=== PATIENT | female | born 1960 | race Caucasian/White ===

== ENCOUNTER → 2016-09-04 | Outpatient (CLI) | payer OTHER ==
[2015-05-15 10:50] VITALS: BP 96/61
== END ==
LOC: RT 10:26
PROVIDERS: ATTEND Obstetrics & Gynecology Obstetrics
DX: G56.01 Carpal tunnel syndrome, right upper limb (principal)
CPT/HCPCS: 95909

== ENCOUNTER → 2017-03-20 | Outpatient (CLI) | payer OTHER ==
[2015-05-15 10:50] VITALS: BP 96/61
[2017-03-20 13:17] LABS: BASOPHILS % (AUTO) 0.9 % (0.2-1.0); EOSINOPHILS # (AUTO) 0.2 x10^3/uL (0.0-0.2); EOSINOPHILS % (AUTO) 4.2 % (0.9-2.9); HEMATOCRIT 39.5 % (36.0-47.0); HEMOGLOBIN 13.2 g/dL (12.0-16.0); LYMPHOCYTES # (AUTO) 1.5 X10^3/uL (1.3-2.9); LYMPHOCYTES % (AUTO) 30.4 % (21.0-51.0); MEAN CORPUSCULAR HEMOGLOBIN 29.4 pg (27.0-34.0); MEAN CORPUSCULAR HGB CONC 33.5 g/dL (33.0-35.0); MEAN CORPUSCULAR VOLUME 87.6 fL (80.0-100.0); MONOCYTES # (AUTO) 0.5 x10^3/uL (0.3-0.8); MONOCYTES % (AUTO) 9.7 % (0.0-13.0); NEUTROPHILS # (AUTO) 2.7 x10^3/uL (2.2-4.8); NEUTROPHILS % (AUTO) 54.8 % (42.0-75.0); PLATELET COUNT 218 X10^3/uL (150.0-450.0); RED BLOOD COUNT 4.51 X10^6/uL (3.5-5.4); RED CELL DISTRIBUTION WIDTH 13.5 % (11.6-16.5); WHITE BLOOD COUNT 4.9 X10^3/uL (3.6-10.0)
[2017-03-20 13:20] LABS: BLOOD UREA NITROGEN 12 mg/dL (7-18); CALCIUM 9.1 mg/dL (8.5-10.1); CARBON DIOXIDE 30.5 mmol/L (21-32); CHLORIDE 106 mmol/L (98-107); CREATININE 0.75 mg/dL (0.55-1.02); SODIUM 141 mmol/L (136-145); eGFR BLACK RACES > 60 (>60); eGFR NON BLACK RACES > 60 (>60)
--- NOTE | 2017-03-20 14:26 | RAD ---
HISTORY: Preop carpal tunnel syndrome Study: Chest PA and lateral Comparison: 05/15/2015 Findings: The heart is within normal limits in size. The earnest are normal. The lungs are well inflated and free of acute alveolar infiltrates. No pleural effusions are identified. The bony thorax is unremarkable. IMPRESSION: No acute cardiopulmonary disease Reported By:
== END ==
LOC: LAB 12:57
PROVIDERS: ATTEND Orthopaedic Surgery Hand Surgery
DX: Z01.818 Encounter for other preprocedural examination (principal); Z01.810 Encounter for preprocedural cardiovascular examination; Z01.811 Encounter for preprocedural respiratory examination; G56.01 Carpal tunnel syndrome, right upper limb
CPT/HCPCS: 36415; 71046; 80048; 85025; 85610; 85730; 93005; 93010

== ENCOUNTER 2017-05-17 08:14 | Day surgery (SDC) | payer OTHER ==
[2017-05-17] MEDS ORDERED: D5 LR 1000 ML 1,000 ML IV ONE (08:21)
[2017-05-17] MEDS ORDERED: DIPRIVAN VIAL 20 ML ONE (09:58)
[2017-05-17] MEDS ORDERED: DIPRIVAN VIAL 10 ML ONE (10:19)
[2017-05-17 11:16] VITALS: BP 111/69
== END 2017-05-17 11:00 | disposition home or self-care (01) ==
LOC: SURG1 08:14
PROVIDERS: ATTEND Internal Medicine Gastroenterology
PROC: 0DBN8ZX Excision of Sigmoid Colon, Via Natural or Artificial Opening Endoscopic, Diagnostic (ICD-10-PCS; principal; 2017-05-17 09:30)
PROC: 0DBP8ZX Excision of Rectum, Via Natural or Artificial Opening Endoscopic, Diagnostic (ICD-10-PCS; principal; 2017-05-17 09:30)
PROC: 0DJD8ZZ Inspection of Lower Intestinal Tract, Via Natural or Artificial Opening Endoscopic (ICD-10-PCS; principal; 2017-05-17 09:30)
DX: Z12.11 Encounter for screening for malignant neoplasm of colon (principal); K92.1 Melena; K51.80 Other ulcerative colitis without complications; R10.31 Right lower quadrant pain; R10.32 Left lower quadrant pain; R19.7 Diarrhea, unspecified; K64.0 First degree hemorrhoids; K62.89 Other specified diseases of anus and rectum; K52.89 Other specified noninfective gastroenteritis and colitis
CPT/HCPCS: A4217; J3490; J7120

== ENCOUNTER → 2017-05-22 | Outpatient (CLI) | payer OTHER ==
[2017-05-17 11:16] VITALS: BP 111/69
== END ==
LOC: LAB 14:35
PROVIDERS: ATTEND Internal Medicine Gastroenterology
DX: R19.7 Diarrhea, unspecified (principal)
CPT/HCPCS: 87045; 87427; 87449; 87493

== ENCOUNTER → 2017-06-05 | Outpatient (CLI) | payer OTHER ==
[2017-05-17 11:16] VITALS: BP 111/69
[2017-06-05 13:57] LABS: BASOPHILS # (AUTO) 0.1 X10^3/uL (0.0-0.1); BASOPHILS % (AUTO) 0.7 % (0.2-1.0); EOSINOPHILS # (AUTO) 0.2 x10^3/uL (0.0-0.2); EOSINOPHILS % (AUTO) 3.1 % (0.9-2.9); HEMATOCRIT 38.8 % (36.0-47.0); HEMOGLOBIN 13.2 g/dL (12.0-16.0); LYMPHOCYTES # (AUTO) 1.5 X10^3/uL (1.3-2.9); LYMPHOCYTES % (AUTO) 21.9 % (21.0-51.0); MEAN CORPUSCULAR HEMOGLOBIN 29.3 pg (27.0-34.0); MEAN CORPUSCULAR VOLUME 86.3 fL (80.0-100.0); MONOCYTES # (AUTO) 0.5 x10^3/uL (0.3-0.8); MONOCYTES % (AUTO) 6.4 % (0.0-13.0); NEUTROPHILS # (AUTO) 4.8 x10^3/uL (2.2-4.8); NEUTROPHILS % (AUTO) 67.9 % (42.0-75.0); PLATELET COUNT 242 X10^3/uL (150.0-450.0); RED BLOOD COUNT 4.49 X10^6/uL (3.5-5.4); RED CELL DISTRIBUTION WIDTH 14.2 % (11.6-16.5); WHITE BLOOD COUNT 7.1 X10^3/uL (3.6-10.0)
[2017-06-05 14:18] LABS: ALANINE AMINOTRANSFERASE 61 Units/L (12-78); ALBUMIN 4.1 g/dL (3.4-5.0); ALKALINE PHOSPHATASE 146 Units/L (46-116); ASPARTATE AMINO TRANSFERASE 48 Units/L (15-37); BLOOD UREA NITROGEN 14 mg/dL (7-18); CALCIUM 9.5 mg/dL (8.5-10.1); CHLORIDE 105 mmol/L (98-107); CREATININE 0.76 mg/dL (0.55-1.02); SODIUM 143 mmol/L (136-145); eGFR BLACK RACES > 60 (>60); eGFR NON BLACK RACES > 60 (>60)
[2017-06-05 14:44] LABS: ERYTHROCYTE SEDIMENTATION RATE 19 MM/HOUR (0-20)
== END ==
LOC: LAB 12:52
PROVIDERS: ATTEND Internal Medicine Gastroenterology
DX: K51.80 Other ulcerative colitis without complications (principal)
CPT/HCPCS: 36415; 80053; 83516; 85025; 85652; 86021; 86140; 86671

== ENCOUNTER 2023-08-08 12:31 | Observation (INO) ==
[2023-08-08 12:42] VITALS: BMI 20.9
--- NOTE | 2023-08-08 13:00 | DR.EXTPAIN ---
HPI Time seen Time Seen by Provider: 08/08/23 12:59 PCP Primary Care Physician: Dr. Caban Complaint/Symptoms Chief Complaint Doctor Comments: 62-year-old female presents for evaluation. Started feeling ill 5 days ago. Developed generalized body aches initially. [place] like the flu. Woke up that evening with nausea and frequent vomiting. Vomiting persisted over the next 1 to 2 days. Having generalized weakness, still with body aches, having a headache. Started coughing over the last day, moist, not very productive. Denies any diarrhea or urinary issues. No fever, chills, congestion, sore throat. Chief Complaint:: Pt states she has been sick since Sunday, vomitting, muscle pain, headache/sinus, stomach ache, running fever off and on, but her main concern is that she is so groggy she just can't seem to wake up and stay awake. COVID-19 Coronavirus risk:travel/contact w/high risk person: No Has patient experienced Coronavirus symptoms: Yes Coronavirus symptoms experienced: Fever Nurses notes reviewed Nurses Notes Review: Yes Source History Provided: Patient Mode of arrival Mode of Arrival: Ambulatory Timing Onset of Chief Complaint: 08/03/23 PMH PMH Past Medical History: Yes Past Medical History: Anxiety Past Surgical History: Yes Surgical History: Ortho Surgery Family History History of Family Medical Conditions: Yes Family Medical History: Cancer and Coronary Artery Disease Social History Does patient currently use any type of tobacco product: No Have you used tobacco products in the last 12 months: No Type of Tobacco Use: None Does any household member use tobacco: No Alcohol Use: None Do you use any recreational Drugs:: No Lives With: Spouse Lives Where: Home Travel Risk Coronavirus risk:travel/contact w/high risk person: No Has patient experienced Coronavirus symptoms: Yes Coronavirus symptoms experienced: Fever Infectious screening In the last 2 months have you had wt loss of >10#?: NO Have you had fever, night sweats or hemotysis?: No Have you traveled outside the country in the last 6 months?: No Isolation: Standard ROS Review of Systems Constitutional: Malaise and Weakness Eyes: No Symptoms Reported ENTM: No Symptoms Reported Respiratoy: Moist Cough Cardiovascular: No Symptoms Reported Gastrointestinal/Abdominal: Nausea and Vomiting Genitourinary: No Symptoms Reported Neurological: Headache and Weakness Musculoskeletal: Muscle Pain Integumentary: No Symptoms Reported Hematologic/Lymphatic: No Symptoms Reported All Other Systems: Reviewed and Negative PE Vital Signs Vitals: Vital Signs Temperature 98.3 F Pulse Rate 75 Pulse Rate 77 Pulse Rate 75 Pulse Rate 75 Pulse Rate 79 Pulse Rate 81 Pulse Rate 84 Respiratory Rate 26 Respiratory Rate 21 Respiratory Rate 35 Respiratory Rate 38 Respiratory Rate 25 Respiratory Rate 36 Respiratory Rate 20 Blood Pressure 98/55 Blood Pressure 107/59 Blood Pressure 99/55 O2 Sat by Pulse Oximetry 97 O2 Sat by Pulse Oximetry 96 O2 Sat by Pulse Oximetry 95 O2 Sat by Pulse Oximetry 94 O2 Sat by Pulse Oximetry 96 O2 Sat by Pulse Oximetry 97 O2 Sat by Pulse Oximetry 93 General General Appearance: Alert and In No Apparent Distress Eyes Eye exam: PERRL and EOMI ENT ENT Exam: Normal Oropharynx and Mucous Membranes Moist Neck Neck Exam: Normal Inspection and Full ROM; negative Tenderness Respiratory Respiratory Exam: Normal Lung Sounds Bilat; negative Accessory Muscle Use or R espiratory Distress Cardiovascular Cardiovascular Exam: Regular Rate, Normal Rhythm and Normal Heart Sounds Abdominal Exam Abdominal Exam: Normal Bowel Sounds and Soft; negative Tenderness Extremities Extremities Exam: Normal Inspection; negative Edema Back Back Exam: Normal Inspection and Tenderness (Diffuse muscle tenderness) Neurological Neurological Exam: Alert, Oriented X3 and CN II-XII Intact; negative Motor Sensory Deficit Skin Skin Exam: Warm and Dry COURSE Treatment Treatment: 60-year-old female, ill with past 5 days. [place] like the flu. Then developed profuse nausea/vomiting. Now with coughing, generalized weakness. Workup initiated. [id number] -workup shows chest x-ray to have marked consolidation of the lower portion of the right upper lobe, consistent with developing lobar pneumonia. White count is normal, chemistry is acceptable overall. She does have a bump of her AST, ALT and alkaline phosphatase. Discussed outpatient treatment versus observation admission. Patient referred to us today. Discussed with her attending, Dr. Caban, accepts admission. Will treat patient with Avelox 400 mg IV daily. ROR Labs Reviewed Laboratory Results Reviewed?: Yes 08/08/23 13:30 08/08/23 13:30 Laboratory: WBC 8.5 X10^3/uL (3.6-10.0) 08/08/23 13:30 RBC 3.94 X10^6/uL (3.5-5.4) 08/08/23 13:30 Hgb 11.4 g/dL (12.0-16.0) L 08/08/23 13:30 Hct 34.4 % (36.0-47.0) L 08/08/23 13:30 MCV 87.1 fL (80.0-100.0) 08/08/23 13:30 MCH 28.9 pg (27.0-34.0) 08/08/23 13:30 MCHC 33.2 g/dL (33.0-35.0) 08/08/23 13:30 RDW 14.2 % (11.6-16.5) 08/08/23 13:30 Plt Count 251 X10^3/uL (150.0-450.0) 08/08/23 13:30 MPV 10.2 fL (7.4-11.0) 08/08/23 13:30 Neut % (Auto) 73.5 % (42.0-75.0) 08/08/23 13:30 Lymph % (Auto) 10.4 % (21.0-51.0) L 08/08/23 13:30 [place] % (Auto) 15.5 % (0.0-13.0) H 08/08/23 13:30 Eos % (Auto) 0.4 % (0.9-2.9) L 08/08/23 13:30 Baso % (Auto) 0.2 % (0.2-1.0) 08/08/23 13:30 Neut # (Auto) 6.3 x10^3/uL (2.2-4.8) H 08/08/23 13:30 Lymph # (Auto) 0.9 X10^3/uL (1.3-2.9) L 08/08/23 13:30 [place] # (Auto) 1.3 x10^3/uL (0.3-0.8) H 08/08/23 13:30 Eos # (Auto) 0.0 x10^3/uL (0.0-0.2) 08/08/23 13:30 Baso # (Auto) 0.0 X10^3/uL (0.0-0.1) 08/08/23 13:30 Absolute Nucleated RBC 0.0 /100WBC 08/08/23 13:30 Sodium 140 mmol/L (136-145) 08/08/23 13:30 Corrected Sodium 140 mmol/L (136-145) 08/08/23 13:30 Potassium 3.4 mmol/L (3.5-5.1) L 08/08/23 13:30 Chloride 100 mmol/L (98-107) 08/08/23 13:30 Carbon Dioxide 31.6 mmol/L (21-32) 08/08/23 13:30 BUN 7 mg/dL (7-18) 08/08/23 13:30 Creatinine 0.73 mg/dL (0.55-1.02) 08/08/23 13:30 Est GFR (MDRD) Af Amer > 60 (>60) 08/08/23 13:30 Est GFR (MDRD) Non-Af > 60 (>60) 08/08/23 13:30 Glucose 117 mg/dL (65-99) H 08/08/23 13:30 Lactic Acid 1.4 mmol/L (0.4-2.0) 08/08/23 13:30 Calcium 9.3 mg/dL (8.5-10.1) 08/08/23 13:30 Corrected Calcium 10.6 mg/dL (8.5-10.1) H 08/08/23 13:30 Total Bilirubin 1.30 mg/dL (0.2-1.0) H 08/08/23 13:30 AST 127 Units/L (15-37) H 08/08/23 13:30 ALT 122 Units/L (12-78) H 08/08/23 13:30 Alkaline Phosphatase 285 Units/L (46-116) H 08/08/23 13:30 Creatine Kinase 35 Units/L (26-192) 08/08/23 13:30 Total Protein 7.0 g/dL (6.4-8.2) 08/08/23 13:30 Albumin 2.4 g/dL (3.4-5.0) L 08/08/23 13:30 Globulin 4.6 g/dL (2.5-4.5) H 08/08/23 13:30 Albumin/Globulin Ratio 0.5 Ratio (1.1-2.1) L 08/08/23 13:30 Lipase 26 Units/L (16-77) 08/08/23 13:30 SARS-CoV-2 (PCR) Negative (NEGATIVE) 08/08/23 13:16 Influenza Type A (PCR) Negative (NEGATIVE) 08/08/23 13:16 Influenza Type B (PCR) Negative (NEGATIVE) 08/08/23 13:16 RSV (PCR) Negative (NEGATIVE) 08/08/23 13:16 Labs acceptable XRAY XRAY Interpreted by: Both X-ray Results: EXAM: CHEST, 1 VIEW HISTORY: COUGH, BODY ACHES; COMPARISON: 05/28/2023 FINDINGS: The trachea is midline. The cardiac silhouette is unremarkable. Airspace opacity in the right upper lobe consistent with developing lobar pneumonia. Left hemithorax appears clear. The bony thorax is unremarkable. IMPRESSION: Parietal lobe pneumonia. THIS IS AN ELECTRONICALLY VERIFIED FINAL REPORT 08/08/2023 1:47 PM - Electronically signed by Balaji Valencia MD Opioid Opioid Risk Tool Age (Derrek box if 16-45): No History of Preadolescent Sexual Abuse: No Total: 0 Total Score Risk Category: Low Risk Copyright: Alcides HOPSON predicting aberrant behaviors Discharge Plan Diagnosis Discharge Problem: Pneumonia involving right lung Discharge Plan Patient Disposition: ADMITTED INPATIENT Condition: Stable Orders to Discharge Patient Discharge Orders: Transfer (Routine); Ordered 08/08/23 Ordered By: Ryland Mojica
[2023-08-08] MEDS: NS 1,000 ML IV 1,000 ML IV ONE (13:26)
[2023-08-08] MEDS: ZOFRAN INJ 4 MG VIAL IVP ONE (13:26)
[2023-08-08] MEDS: PROTONIX INJ 40 MG VIAL IVP ONE (13:27)
[2023-08-08 13:40] LABS: BASOPHILS % (AUTO) 0.2 % (0.2-1.0); EOSINOPHILS % (AUTO) 0.4 % (0.9-2.9); HEMATOCRIT 34.4 % (36.0-47.0); HEMOGLOBIN 11.4 g/dL (12.0-16.0); LYMPHOCYTES # (AUTO) 0.9 X10^3/uL (1.3-2.9); LYMPHOCYTES % (AUTO) 10.4 % (21.0-51.0); MEAN CORPUSCULAR HEMOGLOBIN 28.9 pg (27.0-34.0); MEAN CORPUSCULAR HGB CONC 33.2 g/dL (33.0-35.0); MEAN CORPUSCULAR VOLUME 87.1 fL (80.0-100.0); MEAN PLATELET VOLUME 10.2 fL (7.4-11.0); MONOCYTES # (AUTO) 1.3 x10^3/uL (0.3-0.8); MONOCYTES % (AUTO) 15.5 % (0.0-13.0); NEUTROPHILS # (AUTO) 6.3 x10^3/uL (2.2-4.8); NEUTROPHILS % (AUTO) 73.5 % (42.0-75.0); PLATELET COUNT 251 X10^3/uL (150.0-450.0); RED BLOOD COUNT 3.94 X10^6/uL (3.5-5.4); RED CELL DISTRIBUTION WIDTH 14.2 % (11.6-16.5); WHITE BLOOD COUNT 8.5 X10^3/uL (3.6-10.0)
--- NOTE | 2023-08-08 13:51 | RAD ---
EXAM:CHEST, 1 VIEWHISTORY:COUGH, BODY ACHES;COMPARISON:05/28/2023FINDINGS:The trachea is midline. The cardiac silhouette is unremarkable. Airspace opacity in the right upper lobe consistent with developing lobar pneumonia. Left hemithorax appears clear. The bony thorax is unremarkable.IMPRESSION:Parietal lobe pneumonia.THIS IS AN ELECTRONICALLY VERIFIED FINAL REPORT08/08/2023 1:47 PM - Electronically signed by Balaji Valencia MD
[2023-08-08 13:57] LABS: ALANINE AMINOTRANSFERASE 122 Units/L (12-78); ALBUMIN 2.4 g/dL (3.4-5.0); ALKALINE PHOSPHATASE 285 Units/L (46-116); ASPARTATE AMINO TRANSFERASE 127 Units/L (15-37); BLOOD UREA NITROGEN 7 mg/dL (7-18); CALCIUM 9.3 mg/dL (8.5-10.1); CARBON DIOXIDE 31.6 mmol/L (21-32); CHLORIDE 100 mmol/L (98-107); COR CA(FOR HYPOALB) 10.6 mg/dL (8.5-10.1); COR NA(FOR HYPERGLY) 140 mmol/L (136-145); CREATINE KINASE 35 Units/L (26-192); CREATININE 0.73 mg/dL (0.55-1.02); GLUCOSE 117 mg/dL (65-99); LIPASE 26 Units/L (16-77); POTASSIUM 3.4 mmol/L (3.5-5.1); SODIUM 140 mmol/L (136-145); eGFR NON BLACK RACES > 60 (>60)
[2023-08-08] MEDS: ROCEPHIN VIAL 1 GRAM IVP ONE (14:22)
[2023-08-08 15:47] LABS: BILIRUBIN,URINE NEGATIVE (NEGATIVE); BLOOD/HEMOGLOBIN,URINE NEGATIVE (NEGATIVE); GLUCOSE, URINE NEGATIVE (NEGATIVE); KETONES,URINE NEGATIVE (NEGATIVE); LEUKOCYTE ESTERASE ,URINE 1+ (NEGATIVE); NITRITES,URINE NEGATIVE (NEGATIVE); PROTEIN,URINE 1+ (NEGATIVE); UROBILINOGEN,URINE 2+ (NORMAL)
[2023-08-08 15:56] LABS: APPEARANCE,URINE CLEAR (CLEAR); BACTERIA,URINE TRACE /HPF (NEGATIVE); COLOR,URINE YELLOW (YELLOW); RBC,URINE NONE SEEN /HPF (0-3); SQUAMOUS EPITHELIAL CELL,UR RARE /HPF (NEGATIVE)
[2023-08-08] MEDS: AVELOX IV 400 MG/250 ML BAG 400 MG/250 ML PIGGYBACK IV SCH (16:26)
[2023-08-08] MEDS: LR 1,000 ML IV 1,000 ML IV SCH (16:28)
[2023-08-08] MEDS: K-DUR TAB 20 MEQ PO ONE (16:43)
[2023-08-08] MEDS: DUONEB 0.5 MG/3 MG (3 mL) NEB SCH (17:04)
[2023-08-08] MEDS: CONSULT PHARMACY - POTASSIUM & MAGNESIUM XX SCH ×2 (19:19)
[2023-08-08] MEDS: PULMICORT NEB TX 0.5 MG NEB SCH (20:18)
[2023-08-09] MEDS: TYLENOL 325 MG TAB PO PRN (02:43)
[2023-08-09 06:22] LABS: BASOPHILS % (AUTO) 0.2 % (0.2-1.0); EOSINOPHILS # (AUTO) 0.1 x10^3/uL (0.0-0.2); EOSINOPHILS % (AUTO) 0.6 % (0.9-2.9); HEMATOCRIT 31.9 % (36.0-47.0); HEMOGLOBIN 10.6 g/dL (12.0-16.0); LYMPHOCYTES % (AUTO) 10.6 % (21.0-51.0); MEAN CORPUSCULAR HEMOGLOBIN 28.9 pg (27.0-34.0); MEAN CORPUSCULAR HGB CONC 33.1 g/dL (33.0-35.0); MEAN CORPUSCULAR VOLUME 87.1 fL (80.0-100.0); MEAN PLATELET VOLUME 9.9 fL (7.4-11.0); MONOCYTES # (AUTO) 1.1 x10^3/uL (0.3-0.8); MONOCYTES % (AUTO) 11.8 % (0.0-13.0); NEUTROPHILS # (AUTO) 6.9 x10^3/uL (2.2-4.8); NEUTROPHILS % (AUTO) 76.8 % (42.0-75.0); PLATELET COUNT 255 X10^3/uL (150.0-450.0); RED BLOOD COUNT 3.67 X10^6/uL (3.5-5.4); RED CELL DISTRIBUTION WIDTH 14.4 % (11.6-16.5)
[2023-08-09 06:31] LABS: ALANINE AMINOTRANSFERASE 87 Units/L (12-78); ALBUMIN 2.1 g/dL (3.4-5.0); ALKALINE PHOSPHATASE 256 Units/L (46-116); ASPARTATE AMINO TRANSFERASE 58 Units/L (15-37); BLOOD UREA NITROGEN 4 mg/dL (7-18); CALCIUM 8.8 mg/dL (8.5-10.1); CARBON DIOXIDE 32.5 mmol/L (21-32); CHLORIDE 105 mmol/L (98-107); COR CA(FOR HYPOALB) 10.3 mg/dL (8.5-10.1); CREATININE 0.59 mg/dL (0.55-1.02); GLUCOSE 98 mg/dL (65-99); MAGNESIUM 1.8 mg/dL (2.0-2.9); POTASSIUM 3.6 mmol/L (3.5-5.1); SODIUM 143 mmol/L (136-145); TOTAL PROTEIN 6.2 g/dL (6.4-8.2); eGFR NON BLACK RACES > 60 (>60)
[2023-08-09] MEDS ORDERED: CONSULT PHARMACY - POTASSIUM & MAGNESIUM XX SCH (07:00)
[2023-08-09] MEDS: K-DUR TAB 20 MEQ PO ONE (07:37)
[2023-08-09] MEDS: PULMICORT NEB TX 0.5 MG NEB ONE (07:37)
[2023-08-09] MEDS: MAG-OX TAB PO SCH (09:05)
[2023-08-09] MEDS: K-DUR TAB 20 MEQ PO SCH (09:05)
[2023-08-09] MEDS: SINGULAIR TAB 10 MG PO SCH (09:05)
[2023-08-09] MEDS: WELLBUTRIN XL 300 MG (DAILY) PO SCH (09:05)
[2023-08-10 05:40] LABS: BASOPHILS # (AUTO) 0.1 X10^3/uL (0.0-0.1); BASOPHILS % (AUTO) 0.7 % (0.2-1.0); EOSINOPHILS # (AUTO) 0.1 x10^3/uL (0.0-0.2); EOSINOPHILS % (AUTO) 1.6 % (0.9-2.9); HEMATOCRIT 31.2 % (36.0-47.0); HEMOGLOBIN 10.2 g/dL (12.0-16.0); LYMPHOCYTES # (AUTO) 1.2 X10^3/uL (1.3-2.9); LYMPHOCYTES % (AUTO) 15.6 % (21.0-51.0); MEAN CORPUSCULAR HEMOGLOBIN 28.9 pg (27.0-34.0); MEAN CORPUSCULAR HGB CONC 32.8 g/dL (33.0-35.0); MEAN CORPUSCULAR VOLUME 88.3 fL (80.0-100.0); MEAN PLATELET VOLUME 9.8 fL (7.4-11.0); MONOCYTES # (AUTO) 0.7 x10^3/uL (0.3-0.8); MONOCYTES % (AUTO) 9.3 % (0.0-13.0); NEUTROPHILS # (AUTO) 5.7 x10^3/uL (2.2-4.8); NEUTROPHILS % (AUTO) 72.8 % (42.0-75.0); PLATELET COUNT 332 X10^3/uL (150.0-450.0); RED BLOOD COUNT 3.53 X10^6/uL (3.5-5.4); RED CELL DISTRIBUTION WIDTH 14.6 % (11.6-16.5); WHITE BLOOD COUNT 7.8 X10^3/uL (3.6-10.0)
[2023-08-10 05:51] LABS: ALANINE AMINOTRANSFERASE 73 Units/L (12-78); ALKALINE PHOSPHATASE 271 Units/L (46-116); ASPARTATE AMINO TRANSFERASE 40 Units/L (15-37); BLOOD UREA NITROGEN 3 mg/dL (7-18); CALCIUM 8.6 mg/dL (8.5-10.1); CARBON DIOXIDE 33.5 mmol/L (21-32); CHLORIDE 105 mmol/L (98-107); COR CA(FOR HYPOALB) 10.2 mg/dL (8.5-10.1); CREATININE 0.59 mg/dL (0.55-1.02); GLUCOSE 94 mg/dL (65-99); MAGNESIUM 1.7 mg/dL (2.0-2.9); POTASSIUM 3.2 mmol/L (3.5-5.1); SODIUM 144 mmol/L (136-145); TOTAL PROTEIN 5.8 g/dL (6.4-8.2); eGFR NON BLACK RACES > 60 (>60)
[2023-08-10] MEDS ORDERED: CONSULT PHARMACY - POTASSIUM & MAGNESIUM XX SCH (06:00)
--- NOTE | 2023-08-10 07:50 | US ---
EXAMINATION:LIVERHISTORY:elevated LFTs; ELEVATED LFTS .COMPARISON STUDY:None.TECHNIQUE:Real-time grayscale, color flow, duplex Doppler spectral analysis of the right upper abdomenFINDINGS:The liver measures 14 cm longitudinal oblique dimension and has a normal echotexture. Normal venous waveforms demonstrated within the IVC, imaged hepatic vein, main portal vein. Normal arterial waveforms main hepatic artery.Gallbladder is contracted and therefore suboptimally visualized. There is mild diffuse thickening of the porras of the gallbladder measuring 3.5 mm diameter. Common bile duct measures 3.8 mm diameter. No intrahepatic bile duct dilatation.No pancreatic duct dilatation.IMPRESSION:Contracted gallbladder therefore suboptimally visualized. No bile duct dilatation.Normal appearance to the liver.THIS IS AN ELECTRONICALLY VERIFIED FINAL REPORT08/10/2023 7:47 AM - Electronically signed by Graciela Keith MD
[2023-08-10 08:52] VITALS: BP 121/68; PULSE 90; RESP 20; TEMP 98.9; O2SAT 95
[2023-08-10] MEDS: MAGNESIUM SULFATE 1 GRAM/100 mL PREMIX 1 G/100 ML BAG IV SCH (08:58)
[2023-08-10] MEDS: K-DUR TAB 20 MEQ PO SCH (08:58)
[2023-08-10] MEDS ORDERED: K-DUR TAB 20 MEQ PO SCH (09:00)
[2023-08-10] MEDS ORDERED: MAG-OX TAB PO SCH (09:00)
[2023-08-12 12:17] LABS: HEPATITIS B SURFACE ANTIGEN Negative (Negative)
== END 2023-08-10 10:20 | disposition home or self-care (01) ==
LOC: MED/SURG 12:31 → ER 12:31 → MED/SURG 15:28
PROVIDERS: ADMIT Obstetrics & Gynecology Obstetrics; ATTEND Obstetrics & Gynecology Obstetrics
DX: R53.1 Weakness; R51.9 Headache, unspecified; J18.8 Other pneumonia, unspecified organism; Z20.822 Contact with and (suspected) exposure to COVID-19; M79.18 Myalgia, other site; F41.8 Other specified anxiety disorders; E83.42 Hypomagnesemia; E87.6 Hypokalemia; R94.5 Abnormal results of liver function studies